=== PATIENT | male | born 1950 | race Caucasian/White ===

== ENCOUNTER 2025-05-13 11:42 | Emergency (ER) | payer MEDICARE ==
[2025-05-13] MEDS: Nitroglycerin 0.4 MG Tab.SL SL ONE (12:04)
[2025-05-13] MEDS ORDERED: Sodium Chloride 0.9% 10 ML Syringe FLUSH PRN (12:21)
[2025-05-13 12:38] LABS: BASOPHILS ABSOLUTE AUTO 0.06 K/uL (0.02-0.10); BASOPHILS PERCENT AUTO 0.9 % (0.0-0.5); EOSINOPHILS ABSOLUTE AUTO 0.25 K/uL (0.04-0.40); EOSINOPHILS PERCENT AUTO 3.6 % (1.0-5.0); LYMPHOCYTES ABSOLUTE AUTO 1.29 K/uL (1.50-4.00); LYMPHOCYTES PERCENT AUTO 18.7 % (20.0-40.0); MEAN PLATELET VOLUME 8.7 fL (6.0-10.0); MONOCYTES ABSOLUTE AUTO 0.91 K/uL (0.20-0.80); MONOCYTES PERCENT AUTO 13.2 % (3.0-10.0); NEUTROPHILS ABSOLUTE AUTO 4.38 K/uL (2.00-7.50); NEUTROPHILS PERCENT AUTO 63.6 % (45.0-70.0); PLATELET COUNT,PLT 280 K/uL (150-400); RED BLOOD CELL COUNT 4.12 M/uL (4.50-6.50); RED CELL DISTRIBUTION WIDTH 13.8 % (11.0-16.0); WHITE BLOOD CELL COUNT,WBC 6.9 K/uL (4.0-11.0)
[2025-05-13 13:03] LABS: INR 1.0 (1.0-3.5)
[2025-05-13 13:08] LABS: A/G RATIO 1.1 (0.8-2.0); ALANINE AMINOTRANSFERASE,ALT 29.0 U/L (12-78); ASPARTATE AMNIOTRANSFERASE,AST 21.0 U/L (15-37); BILIRUBIN TOTAL 0.5 mg/dL (0.0-1.0); BLOOD UREA NITROGEN,BUN 20.0 mg/dL (8-26); CARBON DIOXIDE,CO2 31.1 mmol/L (21.0-32.0); CHLORIDE,CL 103.0 mmol/L (98-107); CREATININE 0.96 mg/dL (0.70-1.30); EST CRCL DRUG DOSING (CG) 65.31 mL/min; ESTIMATED GFR 83.0 mL/min (>60); GLUCOSE RANDOM 102.0 mg/dL (74-100); POTASSIUM,K 4.3 mmol/L (3.5-5.1); PROTEIN TOTAL,TP 6.8 g/dL (6.4-8.2); SODIUM,NA 138.0 mmol/L (136-145); TROPONIN I HIGH SENSITIVITY 26.2 pg/ml (<=60.4)
[2025-05-13 13:24] LABS: PTT,PARTIAL THROMBOPLSTIN TIME 25.7 SECONDS (24.4-33.2)
== END 2025-05-13 15:10 | disposition home or self-care (01) ==
LOC: LB.ED 11:42
DX: I20.9 Angina pectoris, unspecified (principal); I10 Essential (primary) hypertension; K21.9 Gastro-esophageal reflux disease without esophagitis; E03.9 Hypothyroidism, unspecified; Z79.82 Long term (current) use of aspirin; Z79.890 Hormone replacement therapy; Z79.899 Other long term (current) drug therapy; Z87.891 Personal history of nicotine dependence
CPT/HCPCS: 36415; 71045; 80053; 84443; 84484; 85025; 85610; 85730; 93005; 99285; A9270